=== PATIENT | female | born 2000 | race Caucasian/White ===

== ENCOUNTER 2025-07-18 08:13 | Outpatient (REF) | payer OTHER, SELFPAY ==
--- OUTSIDE RECORDS SUMMARY | 2025-07-19 08:25 | XMS_ITS | Clinical Summary ---
Author Organization [facility] Address [address] [facility] [address] [place] [phone] Phone Care Team Providers Care Army Ranger Name Role Phone Ellen Connolly WHAT JOB TITLES MEAN Primary Care Provid er Allergies No known active allergies Medications albuterol 90 mcg/actuation inhalerIndicatio ns:Exercise-kali hanna asthma Inhale 2 puffs into the lungs every 4 (four) hours as needed. 6.7 g 4 09/14/19 24 Active copper (PARAGARD) 380 square mm intrauterine device 1 Device by Intrauterine route Once every 10 years. Inserted Sep 2020 Active omega-3s/dha/epa /fish oil/D3 (VITAMIN-D + OMEGA-3 ORAL) Active buPROPion (WELLBUTRIN XL) 300 MG ER 24 hr tabletIndication s:Depressive disorder TAKE ONE TABLET BY MOUTH EVERY DAY 90 tablet 1 03/19/20 25 Active lamoTRIgine (LAMICTAL) 150 MG IMMEDIATE release tablet Take 1 tablet by mouth every morning. 05/01/20 25 Active lamoTRIgine (LAMICTAL) 25 MG IMMEDIATE release tablet Take 25 mg by mouth every morning. 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 Depressive disorder 08/26/2020 Encounters Date Type Department Care Team Description 07/05/2025 2:00 PM EST [facility] Visit [facility] [address] [place] [phone] Ellen Connolly CNP Encounter for annual physical exam (Primary Dx); Pilonidal cyst without abscess 07/05/2025 Telephone [facility] [address] [place], [place] [phone] Ellen Connolly CNP 06/29/2025 Telephone [facility] [address] [place] [address] [phone] Ellen Connolly CNP from Last 3 Months Immunizations Immunization Administration Dates Next Due COVID-19 (Pre-06/07) Moderna Vaccine, mRNA, PF 08/11/2021 COVID-19 (Pre-06/07) Pfizer Vaccine, mRNA, PF 12/23/2020,11/23/2020 COVID-19, Unspecified Formulation 05/18/2025 DTaP, unspecified formulation 09/21/2002 ,02/07/2000,02/06/1999,12/09,1998 HPV, unspecified formulation 11/18/2010,03/12/20 10,01/07/2010 Hepatitis B, unspecified formulation 05/12/1999, 1998,1998 Hib, unspecified formulation 02/07/2000, 02/06/1999,1998,10/08 IPV 09/19/2002, 0,1998,10/08 Influenza Quadrivalent Prese rvative Free IM 08/19/2020 Influenza Quadrivalent w/ Pr eservative IM 08/04/2021 Influenza, Unspecified Formulation 05/18/2025 MMR 09/20/2003,08/12/1999 Meningococcal MCV4, unspecif ied Formulation 01/07/2010 Meningococcal MCV4P 06/25/2017 Rotavirus, unspecified formulation 02/07/2000,,1998 Td (adult),2 Lf Tetanus Toxo id, PF, Adsorbed 05/13/2015 Tdap 07/05/2025,11/03/2011 Varicella 01/07/2010,08/12/1999 Family History Medical History Relation Comments No Known Problems Brother Bipolar disorder Father No Known Problems Mother Bipolar disorder Paternal Aunt 1 Diabetes type II Paternal Aunt 1 Bipolar disorder Paternal Aunt 2 Bipolar disorder Paternal Aunt 3 Lung cancer Paternal Grandfather Diabetes type II Paternal Grandmother Stomach cancer Paternal Grandmother Relation Status Comments Brother Father Mother Paternal Aunt 1 Alive Paternal Aunt 2 Alive Paternal Aunt 3 Alive Paternal Grandfather Paternal Grandmother Social History Tobacco Use Types Packs/Day Years Used Date Smoking Tobacco: Never Smokeless Tobacco: Never Tobacco Cessation:Counseling Given: Not Answered Comments:Smoked for two years in college Alcohol Use Standard Drinks/Week Comments Not Currently 0 (1 standard drink = 0.6 oz pur e alcohol) Child or Family Care Answer Date Record ed Do you have problems with on e of the following making it difficult for you to work, study, or receive health care? No 07/03/2025 Education Answer Date Recorded Are you interested in help w ith more adult education (for example, completing high school, GED, job training, learning the [place] language, technical skills, or developing parenting skills)? No 07/03/2025 Are you concerned about learning? Not on file 07/03/2025 No 07/03/2025 Yes 07/03/2025 Food Answer Date Recorded Within the past 6 months we worried whether our food would run out before we got money to buy more. Never True 07/03/2025 Within the past 6 months the food we bought just didn't last and we didn't have enough money to get more. Never True Residential Stability Answer Date Recor ded What is your housing situation today? I have tanya liriano 07/03/2025 How many times have you moved in the past 12 wed? One time 07/03/2025 Paying for Meds Answer Date Recorded Do you have trouble paying for medicines? No 07/03/2025 Paying Utility Bills Answer Date Record ed Do you have trouble paying your heating or elect ricity bill? No 07/03/2025 Transportation Answer Date Recorded Has the lack of transportati on kept you from medical appointments or from getting medications? No 07/03/2025 Unemployment Answer Date Recorded Are you currently unemployed or working on a part-time or temporary basis, and looking for work? No 07/03/2025 Digital Access Answer Date Recorded No 07/03/2025 Yes 07/03/2025 Do you have reliable internet access at home? Ye s 07/03/2025 Do you have a device (e.g., phone, tablet, computer) with a working camera? Yes 07/03/2025 Intimate Partner Violence Answer Date R ecorded Denied Basic Needs Not on file 07/03/2025 In the past 12 months have y ou been in a relationship with a person who hurts, threatens, or tries to control you? Deferred 07/03/2025 Worried food would run out Not on file 07/03 In the past 12 months have y ou been in a relationship with a person who hurts, threatens, or tries to control you? Deferred 07/03/2025 Comments Unknown Sex and Gender Information Value Date Recorded Sex Assigned at Female 04/21/2022 4:09 PM EDT Legal Sex Female 7:59 AM EST Gender Identity Non-binary 04/21/2022 4:09 PM EDT Sexual Orientation Not on file Last Filed Vital Signs Vital Sign Reading Time Taken Comments Blood Pressure 115/65 07/05/2025 2:03 PM EST Pulse 84 07/05/2025 2:03 PM EST Temperature 37.2 C (98.9 F) 09/28/2024 10:38 AM EST Respiratory Rate 16 09/28/2024 10:38 AM EST Oxygen Saturation 98% 07/05/2025 2:03 PM EST Inhaled Oxygen Concentration - - Weight 74.9 kg (165 lb 3.2 oz) 07/05/2025 2:03 P M EST Height 167.6 cm (5' 6 ) 07/05/2025 2:03 PM EST Body Mass Index 26.66 07/05/2025 2:03 PM EST Plan of Treatment Upcoming Encounters Date Type Department Care Team (Late st Contact Info) Description 08/20/2025 9:30 AM EST Office Visit [address] [phone] Ellen Connolly, MASTER [address] [place] [address] Health Maintenance Due Date Last Done Comments PAP SMEAR 2019 REPEAT PHQ 08/05/2025 07/06/2025, 07/06/2025 PNEUMOCOCCAL VACCINES (0-49 years) (1 of 2 - PCV) 07/05/2026 Postponed from 2017 (Patient Declines / Guardian Declines) DEPRESSION SCREENING 07/06/2026 07/06/2025, 07/06/20 HEPATITIS C SCREENING 07/05/2027 Postpo desi from 2016 (Patient Declines / Guardian Declines) HIV ONE-TIME SCREENING (18-65 YEARS) 07/05/2027 Postponed from 2016 (Patient Declines / Guardian Declines) Adult Td,Tdap Booster 07/05/2035 07/05/2025 , 05/13/2015, 11/03/2011 HIB VACCINES Completed 02/07/2000, 01/15, 1998, Additional history exists HPV VACCINES Completed 11/18/2010, 02/14, 01/07/2010 MENINGOCOCCAL VACCINES (ACWY) Completed 06/25/2017, 01/07/2010 COVID-19 VACCINE Completed 05/18/2025, 09/2023, 08/11/2021, Additional history exists INFLUENZA VACCINE Completed 05/18/2025, , 08/04/2021, Additional history exists SMOKING STATUS SCREENING (Once After 26 Yrs) Completed 07/05/2025 HEPATITIS A VACCINES Aged Out No long er eligible based on patient's age to complete this topic MENINGOCOCCAL VACCINES (B) Aged Out N o longer eligible based on patient's age to complete this topic Medical Devices Not on file Insurance Care Teams Army Ranger Relationship Specialty Start Date End Date Ellen Connolly CNP [address] [place] [phone] [email or web address] PCP - General Nurse Practitioner 08/13/23 Additional Source Comments The information contained in this document represents components of the legal health record. It is not the complete legal health record.[facility]
--- OUTSIDE RECORDS SUMMARY | 2025-07-19 08:26 | XMS_ITS | Encounter Summary ---
Author Organization [facility] Address [address] [place] [phone] Phone Care Team Providers Care Res Habilitation Assistant Name Role Phone Aida Bernstein MD Primary Care Provider + Unknown, Unknown Primary Care Provider Ellen Salcedo CNP Primary Care Provid er Encounter Details Date Type Department Care Team (Latest Contact Info) Description 08/28/2022 Transcribe Orders Virtual Department [address] [place] [address] Sabina Irving, [address] [phone] PCO (polycystic ovaries) (Primary Dx) Social History Tobacco Use Types Packs/Day Years Used Date Smoking Tobacco: Never Assessed Comments Unknown Sex and Gender Information Value Date Recorded Sex Assigned at Female 04/21/2022 4:09 PM EDT Legal Sex Female 7:59 AM EST Gender Identity Non-binary 04/21/2022 4:09 PM EDT Sexual Orientation Not on file documented as of this encounter Plan of Treatment Upcoming Encounters Date Type Department Care Team (Late st Contact Info) Description 08/20/2025 9:30 AM EST Office Visit [facility] [phone] Ellen Connolly, MASTER [address] [place], [place] [phone] [email or web address] documented as of this encounter Results * US PELVIS TRANSABDOMINAL PLUS TRANSVAGINAL (09/03/2022 2:58 PM EST) Anatomical Region Laterality Modality Pelvis, Uterus/Adnexa Ultrasound 09/04/2022 10:4 4 AM EST Impressions 09/04/2022 10:51 AM EST 1. Intrauterine device demonstrated at expected position within the endometrium 2. Complex cyst with single thin avascular septation at the right ovary measuring up to 2.0 cm. Follow-up pelvic sonography in 8-12 weeks recommended. 3. Normal sonographic appearance of the left ovary Narrative 09/04/2022 10:51 AM EST US PELVIS TRANSABDOMINAL PLUS TRANSVAGINAL TECHNIQUE: Pelvic Ultrasound Transabdominal performed for global imaging of the pelvis. Pelvic Ultrasound Transvaginal performed for detailed imaging of the endometrium and/or adnexa. COMPARISON: There is no prior study available for comparison FINDINGS: Uterus: Size: 8.2 x 3.3 x 4.7 cm. Orientation: anteverted Myometrium: Normal. Endometrium: Intrauterine device demonstrated at expected position within the endometrium Thickness: 4 mm. Right adnexa: Ovary: The right ovary measures 3.5 x 2.9 x 2.3 cm. There is a mildly complex avascular lesion at the right ovary with single thin avascular septation measuring 2.0 x 1.5 x 1.5 cm. There is otherwise normal sonographic appearance of the right ovary. Normal color and spectral Doppler ovarian waveforms demonstrated. Left adnexa: Ovary: Normal. The left ovary measures 2.6 x 2.4 x 2.0 cm. Normal color and spectral Doppler ovarian waveforms demonstrated. Free fluid: No significant free fluid. Procedure Note Jazzy Gallo MD - 09/04/2022 US PELVIS TRANSABDOMINAL PLUS TRANSVAGINAL TECHNIQUE: Pelvic Ultrasound Transabdominal performed for global imagingof the pelvis. Pelvic Ultrasound Transvaginal performed for detailedimaging of the endometrium and/or adnexa. COMPARISON: There is no prior study available for comparison FINDINGS: Uterus: Size: 8.2 x 3.3 x 4.7 cm. Orientation: anteverted Myometrium: Normal. Endometrium: Intrauterine device demonstrated at expected position withinthe endometrium Thickness: 4 mm. Right adnexa: Ovary: The right ovary measures 3.5 x 2.9 x 2.3 cm. There is a mildly complexavascular lesion at the right ovary with single thin avascular septationmeasuring 2.0 x 1.5 x 1.5 cm. There is otherwise normal sonographicappearance of the right ovary. Normal color and spectral Doppler ovarianwaveforms demonstrated. Left adnexa: Ovary: Normal. The left ovary measures 2.6 x 2.4 x 2.0 cm. Normal color andspectral Doppler ovarian waveforms demonstrated. Free fluid: No significant free fluid. IMPRESSION: 1. Intrauterine device demonstrated at expected position within theendometrium 2. Complex cyst with single thin avascular septation at the right ovarymeasuring up to 2.0 cm. Follow-up pelvic sonography in 8-12 weeksrecommended. 3. Normal sonographic appearance of the left ovary us Sabina Kenna Sanabria Dane CNM IMG US PELVIS Fi nal Result documented in this encounter Visit Diagnoses Diagnosis PCO (polycystic ovaries)- Primary Polycystic ovaries PCO (polycystic ovaries) Polycystic ovaries documented in this encounter Additional Health Concerns Infection Onset Date Last Indicated Resolved Time CoV-Risk 09/28/2024 09/28/2024 10/09/2024 1:22 AM EST documented as of this encounter Care Teams Res Habilitation Assistant Relationship Specialty Start Date End Date Aida Bernstein MD [address] [place] [phone] PCP - General 04/21/22 12/17/22 Unknown, Franco, PCP - General 12/18/22 08/12/23 Ellen Connolly CNP [address] [place] [phone] PCP - General Nurse Practitioner 08/13/23 documented as of this encounter Additional Source Comments The information contained in this document represents components of the legal health record. It is not the complete legal health record.[facility]
--- OUTSIDE RECORDS SUMMARY | 2025-07-19 08:26 | XMS_ITS | Encounter Summary ---
Author Organization [facility] Address [address] [place] [phone] Phone Care Team Providers Care Patrol Community Service Officer Name Role Phone Ellen Connolly CNP Primary Care Provid er Encounter Details Date Type Department Care Team (Late st Contact Info) Description 07/03/2024 Procedure [facility] Scan - [address] [phone] Social History Tobacco Use Types Packs/Day Years Used Date Smoking Tobacco: Never Smokeless Tobacco: Never Comments:Smoked for two year s in college Alcohol Use Standard Drinks/Week Comments Not Currently 0 (1 standard drink = 0.6 oz pur e alcohol) Child or Family Care Answer Date Record ed Do you have problems with on e of the following making it difficult for you to work, study, or receive health care? No 06/07/2024 Education Answer Date Recorded Are you interested in help w ith more adult education (for example, completing high school, GED, job training, learning the Polish language, technical skills, or developing parenting skills)? No 06/07/2024 Are you concerned about learning? Not on file 06/07/2024 No 06/07/2024 Yes 06/07/2024 Food Answer Date Recorded Within the past 6 months we worried whether our food would run out before we got money to buy more. Never True 06/07/2024 Within the past 6 months the food we bought just didn't last and we didn't have enough money to get more. Never True Residential Stability Answer Date Recor ded What is your housing situation today? I have tanya sing 06/07/2024 How many times have you move d in the past 12 months? Zero (I did not move) 06/07/2024 Paying for Meds Answer Date Recorded Do you have trouble paying for medicines? No 06/07/2024 Paying Utility Bills Answer Date Record ed Do you have trouble paying your heating or elect ricity bill? No 06/07/2024 Transportation Answer Date Recorded Has the lack of transportati on kept you from medical appointments or from getting medications? No 06/07/2024 Unemployment Answer Date Recorded Are you currently unemployed or working on a part-time or temporary basis, and looking for work? No 06/07/2024 Digital Access Answer Date Recorded No 06/07/2024 Yes 06/07/2024 Do you have reliable internet access at home? Ye s 06/07/2024 Do you have a device (e.g., phone, tablet, computer) with a working camera? Yes 06/07/2024 Intimate Partner Violence Answer Date R ecorded Denied Basic Needs Not on file 06/07/2024 In the past 12 months have y ou been in a relationship with a person who hurts, threatens, or tries to control you? No 06/07/2024 Worried food would run out Not on file 06/07 In the past 12 months have y ou been in a relationship with a person who hurts, threatens, or tries to control you? No 06/07/2024 Comments Unknown Sex and Gender Information Value Date Recorded Sex Assigned at Female 04/21/2022 4:09 PM EDT Legal Sex Female 7:59 AM EST Gender Identity Non-binary 04/21/2022 4:09 PM EDT Sexual Orientation Not on file documented as of this encounter Plan of Treatment Upcoming Encounters Date Type Department Care Team (Late st Contact Info) Description 08/20/2025 9:30 AM EST Office Visit [facility] [phone] Ellen Connolly CNP [address] [place] [address] documented as of this encounter Visit Diagnoses Not on filedocumented in this encounter Additional Health Concerns Infection Onset Date Last Indicated Resolved Time CoV-Risk 09/28/2024 09/28/2024 10/09/2024 1:22 AM EST Assessment Noted Time PHQ-2 Depression Total Score: 0 06/07/20 7:13 AM EDT documented as of this encounter Care Teams Patrol Community Service Officer Relationship Specialty Start Date End Date Ellen Connolly CNP [address] [place] [phone] [email or web address] PCP - General Nurse Practitioner 08/13/23 documented as of this encounter Additional Source Comments The information contained in this document represents components of the legal health record. It is not the complete legal health record.[facility]
--- OUTSIDE RECORDS SUMMARY | 2025-07-19 08:26 | XMS_ITS | Encounter Summary ---
Author Organization [facility] Address [address] [place] [phone] Phone Care Team Providers Care Ore Bridge Operator Name Role Phone Aida Bernstein MD Primary Care Provider + Unknown, Unknown Primary Care Provider Ellen Salcedo CNP Primary Care Provid er Encounter Details Date Type Department Care Team (Latest Contact Info) Description 11/27/2022 Transcribe Orders Virtual Department [address] [place] [address] Sabina Irving, [address] [phone] Follow-up exam (Primary Dx) Social History Tobacco Use Types [...] Description 08/20/2025 9:30 AM EST Office Visit [address] [phone] Ellen Connolly CNP [address] [place], [place] [phone] documented as of this encounter Results * US PELVIS TRANSABDOMINAL PLUS TRANSVAGINAL (12/18/2022 4:29 PM EDT) Anatomical Region Laterality Modality Pelvis, Uterus/Adnexa Ultrasound 12/18/2022 4:35 PM EDT Impressions 12/18/2022 4:38 PM EDT 1. Intrauterine device at the expected location within the endometrium. 2. Normal sonographic appearance of the bilateral ovaries with interval resolution of previously demonstrated right-sided complex cyst. Narrative 12/18/2022 4:38 PM EDT US PELVIS TRANSABDOMINAL PLUS TRANSVAGINAL TECHNIQUE: Pelvic Ultrasound Transabdominal performed for global imaging of the pelvis. Pelvic Ultrasound Transvaginal performed for detailed imaging of the endometrium and/or adnexa. COMPARISON: Pelvic sonography 09/03/2022 FINDINGS: Uterus: Size: 8.7 x 2.6 x 4.5 cm. Orientation: anteverted Myometrium: Normal. Endometrium: Intrauterine device at the expected location within the endometrium. Thickness: 6 mm. Right adnexa: Ovary: Normal. Right ovary measures 3.5 x 2.2 x 2.4 cm. Normal color and spectral Doppler waveform analysis. Left adnexa: Ovary: Normal. Left ovary measures 3.6 x 2.1 x 2.2 cm. Normal color and spectral Doppler waveform analysis. Free fluid: No significant free fluid. Procedure Note Jazzy Gallo MD - 12/18/2022 US PELVIS TRANSABDOMINAL PLUS TRANSVAGINAL TECHNIQUE: Pelvic Ultrasound Transabdominal performed for global imagingof the pelvis. Pelvic Ultrasound Transvaginal performed for detailedimaging of the endometrium and/or adnexa. COMPARISON: Pelvic sonography 09/03/2022 FINDINGS: Uterus: Size: 8.7 x 2.6 x 4.5 cm. Orientation: anteverted Myometrium: Normal. Endometrium: Intrauterine device at the expected location within theendometrium. Thickness: 6 mm. Right adnexa: Ovary: Normal. Right ovary measures 3.5 x 2.2 x 2.4 cm. Normal color and spectralDoppler waveform analysis. Left adnexa: Ovary: Normal. Left ovary measures 3.6 x 2.1 x 2.2 cm. Normal color and spectralDoppler waveform analysis. Free fluid: No significant free fluid. IMPRESSION: 1. Intrauterine device at the expected location within the endometrium. 2. Normal sonographic appearance of the bilateral ovaries with intervalresolution of previously demonstrated right-sided complex cyst. us Sabina Sanabria Dane CNM IMG US PELVIS Fi nal Result documented in this encounter Visit Diagnoses Diagnosis Follow-up exam- Primary Unspecified follow-up examination Follow-up exam Unspecified follow-up examination documented in this encounter Additional Health Concerns Infection Onset Date Last Indicated Resolved Time CoV-Risk 09/28/2024 09/28/2024 10/09/2024 1:22 AM EST documented as of this encounter Care Teams Ore Bridge Operator Relationship Specialty Start Date End Date Aida Bernstein MD [address] [place] [phone] PCP - General 04/21/22 12/17/22 Unknown, Unknown, PCP - General 12/18/22 08/12/23 Ellen Connolly CNP [address] [place] [phone] [email or web address] PCP - General Nurse Practitioner 08/13/23 documented as of this encounter Additional Source Comments The information contained in this document represents components of the legal health record. It is not the complete legal health record.[facility]
[2025-07-19 08:35] LABS: Cannabinoid Screen Urine POSITIVE (Not Detect)
== END 2025-07-18 08:14 | disposition home or self-care (01) ==
LOC: HO.PHPLNP 08:13
PROVIDERS: Visit Provider Psychiatry & Neurology Psychiatry
DX: Z51.81 Encounter for therapeutic drug level monitoring (principal); F31.81 Bipolar II disorder; F19.21 Other psychoactive substance dependence, in remission
CPT/HCPCS: 80307

== ENCOUNTER 2025-07-31 08:15 | Outpatient (RCR) | payer OTHER, SELFPAY ==
[2025-07-18 09:33] VITALS: BMI 27.0
[2025-07-18 09:34] VITALS: BP 90/58; PULSE 80; TEMP 36.6
--- NOTE | 2025-07-18 14:26 | PC.ADMIT ---
Patient is a 24 year old individual who goes by the name of Enoc and uses they/them pronouns who was referred to [facility] by her therapist secondary to increased depression for the past two months along with having a hypomanic episode. Patient stated she thinks she has Bipolar disorder currently depressed with agitation. Patient also stated she is struggling with substance use and would like to work on quitting using all together or decreasing use. Patient reports for the past two weeks she has been drinking alcohol daily drinking three canned alcohol drinks with 4 percent alcohol in each can. Prior to this she stated she was drinking more socially 2-3 times a week. Patient stated she is using Marijauna daily at night. Reports history of overusing prescription Percocets in July. Patient also reports use of Ketamine twice a year and history of using her ex-partners prescription Valium. 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 Patient stated she is able to cut down her hours to attend [employer]. 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 I changed my hours and will work after this. Patient is alert and oriented x4. Thoughts are logical and clear. She is calm and cooperative. She presented with depressed mood and anxious affect. When asked about SI patient stated, Mostly sometimes I drive under the influence a little reckless behavior. Thinking about crashing my car a lot. Patient denied any plans or intent to act on her their thoughts. Patient started, I would describe them more of intrusive thoughts. I have dealt with that for a long time . Patient denied any plans or intention of following through with her thoughts. Patient was given a copy of her safety plan if needed. Patient denied HI. Medications updated with patient and patient's pharmacy. Patient stated she is taking her medications as prescribed. She reports her prescriber recently increased Lamictal from 125 mg daily to 150 mg daily.
--- NOTE | 2025-07-19 15:22 | HO.PHP ---
Kiley, who prefers to go by Enoc's case was opened during weekly team treatment meeting.
--- NOTE | 2025-07-20 15:59 | P.HPPSP_ITS ---
HPI Date of Service: 07/20/25 Chief Complaint: bipolar II Sources of Information: patient interviewed, chart reviewed and crisis/core team assessment reviewed Additional Sources of Information: Patient goes by Enoc and prefers They/Them pronouns HPI Narrative: Per Initial Assessment, Kiley, who prefers to go by Enoc and will be referred to throughout this documentation, is a 24 year old, non-binary , they/them pronouns, Swedish Speaking person who was referred to [facility]'s ([facility] Partial Hospitalization Program (PHP) by their therapist Josue Araiza due to increased, severe depressive episode. Enoc reported that they have been experiencing increased depressive symptoms for the past two months after reportedly experiencing a hypomanic episode for approximately two weeks in May of 2025hat in May 2025 they experience a period of hypersexuality, impulsive spending, reckless behaviors including reduced care for self, reckless sexual behaviors, delusional decision making and decreased need for sleep. Enoc reported that over the last month, depressive symptoms have increased to include passive suicidal ideations including driving their car into a tree or into on coming traffic, they reported these thoughts as intrusive. Enoc reported that they have been experiencing feelings of anhedonia including difficulty completing tasks, functioning to their full capacity at work and increased substance use. Enoc reported an decrease in their distress tolerance reporting increased feelings of irritability creating a diminished ability to function in their daily life. Enoc reported an increased need for sleep in the last month reporting sleeping between 12 to 13 hours daily. Today patient presented as pleasant, well-groomed, calm, cooperative, dysthymic affect without lability and was appropriate and organized. They shared history significant for episodes of hypomania which appear to be trauma-driven and occur both in and outside of the effects of substance use. Some of this ties to developmental history highly suggestive of long standing emotional, attention dysregulation, impulse control compromised when triggered by stress and traumatic triggers. There was a period of acute jozef back in 2022 characterized by disorganized thinking, grandiosity, delusional and eratomanic thoughts, ideas of reference, erratic behaviors, high impulsivity which developed while on gender-affirming hormone therapy/testosterone. Reportedly they stopped treatment after 9 months due to the impact it was having on their mental health. Reviewed recent substance use, reports casual/social/recreational use of alcohol, ketamine, BZD in the past not felt to be problematic, except alcohol had become only more problematic in past 2 months with binging pattern. Longer term daily cannabis use They are currently treated on Wellbutrin XL 300 mg qam for the past 5-6 yrs and Lamictal 150 mg (for the past year). MOod with high degree of degree of emotional reactivity, up and down sensitive to external stressors, particularly interpersonal dynamics, relationship stressors. Poor frustartion tolerance chronicically. Transient SI as intrusive thoughts, last had thought to drive car off road last week when frustrated. Denies any current thoughts of harming self or others. Denies HI, AH, VH. Sleep changes depending on external factors. Past Psychiatric History: No prior IPLOC, PHP, respite, detox/rehab admissions SA: denies SIB: cutting in adolescence Pertinent developmental hx: history of gender mood and behavioral instability throughout childhood, gender dysphoria Psychiatrist: Juliet Austin NP Therapist: Josue Araiza [facility] PCP:Cecy Connolly NP Previous trials: Zoloft (x years starting at age 12), Buspar, Wellbutrin (on and off x years), Lamictal [facility] Medical History (Updated 09/17/25 @ 04:22 by Tyesha Garcia MD) Fractured tibia and fibula Exercise-induced asthma Narrative: Previously treated on testosterone/GAHT in 2022 (x9 months) Seizures: denies Concussions/TBI: x1 in middle school, no LOC G0 nulligravid LMP: 07/09 Ht: 5'6 Wt:170 lbs ALL: NKDA Family History: Mood disorders, possibly Bipolar in family, addiction on both sides of family Diagnostics Vital Signs (24Hr): BMI result Body Mass Index 27.0 Meds/Allergies Meds Home Medications ?Medication ?Instructions ?Recorded ?Confirmed ?Type lamotrigine 100 mg tablet 100 mg PO DAILY 07/18/2511/07 History Allergies Allergies Allergy/AdvReac Type Severity Reaction Status Date / Time lactose Allergy Vomiting, Verified 07/18/25 09:33 diarrhea. Mental Status Exam Mental Status Exam Narrative: Alert, oriented, in no acute distress. Calm, cooperative, at times intensely engaged, well-related. No psychomotor agitation or neurovegetative retardation. Eye contact maintained. Mood depressed, affect constricted, brightens at moment. Speech normal. Thought process linear, coherent. Thought content related to stressors, transient hopelessness, denies SI today, no HI. No paranoia or delusional content elicited. No evidence of psychosis. Insight and judgment - fair but adequate. Assessment & Plan Assessment & Plan (1) Attention-deficit hyperactivity disorder, unspecified type: Status: Acute Code(s): F90.9 - Attention-deficit hyperactivity disorder, unspecified type (2) Other bipolar disorders: Status: Acute Code(s): F31.89 - Other bipolar disorder (3) Complex posttraumatic stress disorder: Status: Acute Code(s): F43.10 - Post-traumatic stress disorder, unspecified (4) Polysubstance use disorder: Status: Acute Code(s): F19.90 - Other psychoactive substance use, unspecified, uncomplicated Assessment and Plan: primary cannabis daily chronic, alcohol use with more recent binge pattern h/o of recreational substance use Plan Admit to [facility] VS reviewed on admission start Abilify 2 mg qhs continue regular medications for now Routine lab work as indicated EKG, routine for baseline QTc for medication considerations as indicated UDS as indicated MassPat reviewed Safety plan reviewed Continue to monitor as per protocol Patient educated on: diagnosis, medication risk/benefits and substance abuse Informed Consent: understands Reason for continued partial hosp. stay Substantial Risk for: harm to self, inability to function, rapid decompensation and med/psych decompensation Certification I certify that partial hospital treatment is medically necessary due to the symptoms and problems resulting from the patient's mental illness and the fa ilure to treat the patient at the partial hospital level of care would likely result in the patient requiring inpatient psychiatric care which could not be prevented at a less intensive level of care. Time Spent With Patient Time: Total time managing care of this patient today __90__ minutes.
--- NOTE | 2025-07-23 14:35 | PC.ADMIT ---
Patient is a 24 year old individual who goes by the name of Enoc and uses they/them pronouns who was referred to [facility] by their therapist secondary to increased depression for the past two months along with having a hypomanic episode. Patient stated they think they have Bipolar disorder currently depressed with agitation. Patient also stated they are struggling with substance use and would like to work on quitting using all together or decreasing use. Patient reports for the past two weeks they have been drinking alcohol daily drinking three canned alcohol drinks with 4 percent alcohol in each can. Prior to this they stated they were drinking more socially 2-3 times a week. Patient stated they are using Marijauna daily at night. Reports history of overusing prescription Percocets in July. Patient also reports use of Ketamine twice a year and history of using their ex-partners prescription Valium. 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 Patient stated they are able to cut down their work hours to attend PHP. Patient stated, I'm able to go manager party for now. I changed my hours and will work after this. Patient is alert and oriented x4. Thoughts are logical and clear. They are calm and cooperative. They presented with depressed mood and anxious affect. When asked about SI patient stated, Mostly sometimes I drive under the influence a little reckless behavior. Thinking about crashing my car a lot. Patient denied any plans or intent to act on their thoughts. Patient started, I would describe them more of intrusive thoughts. I have dealt with that for a long time . Patient denied any plans or intention of following through with their thoughts. Patient was given a copy of her safety plan if needed. Patient denied HI. Medications updated with patient and patient's pharmacy. Patient stated they are taking their medications as prescribed. They report their prescriber recently increased Lamictal from 125 mg daily to 150 mg daily.
--- NOTE | 2025-07-31 22:43 | P.PNPSP_ITS ---
Subjective Subjective Date of Service: 07/31/25 Reason For Visit: bipolar II Interim History: Patient seen for follow-up, anticipating discharge at the end of program today.? Wow I am able to think my thoughts clearly... so much calmer . Overall improvements noted with emotional regulation, impulse control and frustration tolerance. Intrusive thoughts not occurring. Abilify currently at 3.5 mg and Adderall at 5 mg BID. Sleep imrpoived with lower Wellbutrin. Mood continues to improve. But notices ABilify less sedating. Does not feel it is their stimulant interfering as they take 2nd dose of Adderall after lunch and can tell it wears off. Will offer mirtazapine to take as prn for sleep as tolerated. Reports no acute issues or concerns. Medication compliant, medications well- tolerated. Denies any adverse effects.? Mood is stable.? Denies any hopelessness or SI. Denies thoughts of harming self or others at this time. Denies any aggressive ideation or HI. Denies any paranoia or AH or VH. Sleep improved but with delayed onset but getting 6-7 hrs, appetite, energy stable. Medication Compliance: Yes Side effects from medications: No Attending Groups: Yes Review of Systems Acute medical concerns: No Mental Status Exam Mental Status Exam Narrative: Alert, oriented, in no acute distress. Calm, cooperative. Mood stable, affect appropriate. Speech normal. Thought process linear, coherent, more goal- directed. Thought content related to stressors, future-oriented, denies any helplessness, hopelessness or SI.? No aggressive ideation or HI. No paranoia or delusional content elicited. No evidence of psychosis. Insight and judgment fair-good. Diagnostics Vital Signs (24Hr): BMI result Body Mass Index 27.0 Assessment & Plan Assessment & Plan (1) Other bipolar disorders: Status: Acute Code(s): F31.89 - Other bipolar disorder (2) Attention-deficit hyperactivity disorder, unspecified type: Status: Acute Code(s): F90.9 - Attention-deficit hyperactivity disorder, unspecified type (3) Complex posttraumatic stress disorder: Status: Acute Code(s): F43.10 - Post-traumatic stress disorder, unspecified (4) Polysubstance use disorder: Status: Acute Code(s): F19.90 - Other psychoactive substance use, unspecified, uncomplicated Assessment and Plan: primary cannabis daily chronic, alcohol use with more recent binge pattern h/o of recreational substance use Plan Discharge from [facility] Continue regular medications? Refills sent to pharmacy Will defer further medication management to outpatient provider *Safety plan reviewed *Discharge diagnoses, treatment course, discharge plan have been reviewed with patient (including medication regime, medication management, potential side effects) as well as treatment rationale were also revisited *Discharge paperwork signed and given to patient, copy sent for scanning to chart Patient educated on: diagnosis, medication risk/benefits and substance abuse Informed Consent: understands Reason for contiued partial hosp. stay Substantial Risk for: stable for discharge Certification I certify that partial hospital treatment is medically necessary due to the symptoms and problems resulting from the patient's mental illness and the failure to treat the patient at the partial hospital level of care would likely result in the patient requiring inpatient psychiatric care which could not be prevented at a less intensive level of care. Total time managing care of this patient today _45___ minutes. Discharge Plan Discharge Attending provider: Tyesha Garcia Medications: New dextroamphetamine-amphetamine 10 mg tablet 10 mg PO BID Qty: 30 0RF Rx Instructions: administer doses at least 4-6 hours apart; Partial Fill upon patient request. For ADHD bupropion HCl [Wellbutrin XL] 150 mg tablet extended release 24 hr 150 mg PO QAM Qty: 30 0RF aripiprazole 5 mg tablet 5 mg PO DAILY Qty: 30 0RF mirtazapine 7.5 mg tablet 7.5 mg PO BEDTIME PRN (Reason: sleep) Qty: 10 0RF Continued lamotrigine 100 mg tablet 100 mg PO DAILY lamotrigine 25 mg tablet 50 mg PO DAILY Qty: 60 0RF Patient Comments: Patient stated her prescriber increased Lamictal from 125 mg to 150 mg daily. aripiprazole 2 mg tablet 2 mg PO BEDTIME Qty: 30 0RF Discontinued bupropion HCl 300 mg tablet extended release 24 hr 300 mg PO DAILY Stand Alone Forms: Patient Portal Discharge page Patient Education: Mood Disorders (DC), ADHD in Adults (ED), ADHD in Adults (DC) Print Language: Cook Islander
--- NOTE | 2025-09-17 04:30 | PM.EVENT ---
Event Note Date of Service: 07/27/25 Event Note: Met with patient briefly to discuss treatment plan. Updated residential mortgage underwriter on interim events. Feels ABilify has been helpful, well-tolerated. Will plan to continue to titrate. Notices consdierably less irritability/anger with lowing of Wellbutrin and addition of ABilfy also has helped with risky impulsivity and intrusive thoughts are cut down significantly , overall calmer. Will continue titrate toward 5 mg. Has been helping with sleep. Denies any SI. No HI, AH, VH. Denies any alcohol or substance use aside from cannabis. WIll trial short acting Adderall given insurances have not been approving long acting stimluant medications since Jul 16. Time Spent With Patient Time: Total time managing care of this patient today _30___ minutes.
== END 2025-07-31 23:59 | disposition home or self-care (01) ==
LOC: HO.PHPA 08:15
PROVIDERS: Visit Provider Psychiatry & Neurology Psychiatry
DX: F31.89 Other bipolar disorder (principal); F90.9 Attention-deficit hyperactivity disorder, unspecified type; F43.10 Post-traumatic stress disorder, unspecified; F19.90 Other psychoactive substance use, unspecified, uncomplicated; Z79.899 Other long term (current) drug therapy; Z91.52 Personal history of nonsuicidal self-harm
CPT/HCPCS: 90791; 90853